=== PATIENT | male | born 1985 | race Caucasian/White ===

== ENCOUNTER 2017-06-11 21:57 | Emergency (ER) | payer MEDICARE, MEDICAID ==
[~2017-06-11] VITALS: Ht 185.4 cm; Wt 134.1 kg
[~2017-06-11 21:57] MED LIST: DEP250 PO; DEP500A PO; ENOX150D SUBQ; RISP1TAB90 PO; SERT50TA9 PO
[2017-06-11 22:12] VITALS: BP 124/83; PULSE 80; RESP 20; O2SAT 96
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
[2017-06-11] MEDS ORDERED: oxyCODONE-Acetamin 5-325 mg Tablet PO ONE (22:35)
[2017-06-12] MEDS ORDERED: Dabigatran 150 mg Capsule PO ONE (00:20)
[2017-06-12 00:58] LABS: BASOPHILS % (AUTO) 0.3 % (0-3); EOSINOPHILS % (AUTO) 4.9 % (0-5); MONOCYTES % (AUTO) 9.2 % (4-12); Mean Corpuscular Hemoglobin 29.7 pg (27.0-35.0); Mean Corpuscular Volume 86.4 fL (81-100); NEUTROPHILS % (AUTO) 52.5 % (40-74); Platelet Count 295 bil/L (150-400)
[2017-06-12] MEDS ORDERED: CALC500T9 PO (01:00)
[2017-06-12] MEDS ORDERED: MELA5TAB14 PO (01:00)
[2017-06-12] MEDS ORDERED: OMEP20CA11 PO (01:00)
[2017-06-12] MEDS ORDERED: CLON0.5T PO (01:00)
[2017-06-12] MEDS ORDERED: NICO2LOZ BC (01:00)
[2017-06-12] MEDS ORDERED: CLON1TAB PO (01:00)
[2017-06-12] MEDS ORDERED: DIPH25CA6 PO (01:00)
[2017-06-12] MEDS ORDERED: OXYC5CAP4 PO (01:00)
[2017-06-12] MEDS ORDERED: RISP1TAB90 PO (01:00)
[2017-06-12] MEDS ORDERED: MAGN400O4 PO (01:00)
[2017-06-12] MEDS ORDERED: SIME120L MC (01:00)
[2017-06-12] MEDS ORDERED: LITH600C PO ×2 (01:00)
[2017-06-12] MEDS ORDERED: PRAZ2CAP2 PO (01:00)
[2017-06-12] MEDS ORDERED: GABA-502 PO (01:00)
[2017-06-12] MEDS ORDERED: ACET325T51 PO (01:00)
[2017-06-12] MEDS ORDERED: BUSP15TA3 PO (01:00)
[2017-06-12] MEDS ORDERED: TRAM50TA2 PO (01:00)
[2017-06-12] MEDS ORDERED: DABI150C PO (01:35)
[2017-06-12 02:55] VITALS: BP 127/81; PULSE 80; RESP 18; O2SAT 96
--- NOTE | 2017-06-12 09:22 | DRSVH ---
PROCEDURE: US VEINOUS LEG DUPLEX UNILATERAL, LEFT INDICATIONS: L leg swelling, prior DVT TECHNIQUE: Real-time imaging, as well as color and pulse Doppler interrogation, were performed of the lower extr emity deep veins from the inguinal ligament to the popliteal fossa. COMPARISON: None. FINDINGS: The deep veins are normally compressible, and free of intraluminal thrombus. Color and pu lse Doppler demonstrate normal phasic intraluminal flow. There is normal augmentation response to di stal compression maneuver. There is incomplete compressibility of the proximal superficial femoral v ein with wall thickening. IMPRESSION: Findings suggesting chronic DVT involving the proximal superficial femoral vein. Otherwis e no acute deep venous thrombosis identified within the left lower extremity. Note: These findings are concordant with the preliminary interpretation. Dictated by: Flo SALOMON Interpreted: Victorina De La Vega MD on 06/12/2017 at 8:49 Approved by: Victorina De La Vega M.D. on 06/12/2017 at 9:19
== END 2017-06-12 02:56 | disposition other institution (70) ==
LOC: EDBD 21:57 → SED 21:57
DX: I82.411 Acute embolism and thrombosis of right femoral vein (principal); F31.9 Bipolar disorder, unspecified; F41.9 Anxiety disorder, unspecified; F32.9 Major depressive disorder, single episode, unspecified; F17.200 Nicotine dependence, unspecified, uncomplicated; Z88.0 Allergy status to penicillin; Z86.711 Personal history of pulmonary embolism; Z86.14 Personal history of Methicillin resistant Staphylococcus aureus infection

== ENCOUNTER 2017-06-17 12:08 | Emergency (ER) | payer MEDICARE, MEDICAID ==
[~2017-06-17] VITALS: Ht 185.4 cm; Wt 145.4 kg
[~2017-06-17 12:08] MED LIST changes: +ACET325T51 PO; +BUSP15TA3 PO; +CALC500T9 PO; +CLON0.5T PO; +CLON1TAB PO; +DABI150C PO; -DEP250 PO; -DEP500A PO; +DIPH25CA6 PO; -ENOX150D SUBQ; +GABA-502 PO; +LITH600C PO; +MAGN400O4 PO; +MELA5TAB14 PO; +NICO2LOZ BC; +OMEP20CA11 PO; +OXYC5CAP4 PO; +PRAZ2CAP2 PO; -SERT50TA9 PO; +SIME120L MC; +TRAM50TA2 PO
[2017-06-17 12:19] VITALS: BP 146/64; PULSE 63; RESP 18; O2SAT 98
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
[2017-06-17 15:14] VITALS: BP 143/85; PULSE 82; RESP 16; O2SAT 97
--- NOTE | 2017-06-17 16:24 | DRSVH ---
PROCEDURE: US VEINOUS LEG DUPLEX UNILATERAL, LEFT INDICATIONS: worsening leg swelling, known DVT TECHNIQUE: Real-time imaging, as well as color and pulse Doppler interrogation, were performed of the lower extr emity deep veins from the inguinal ligament to the popliteal fossa. COMPARISON: None. FINDINGS: The deep veins are normally compressible, and free of intraluminal thrombus. Color and pu lse Doppler demonstrate normal phasic intraluminal flow. There is normal augmentation response to di stal compression maneuver. IMPRESSION: No DVT found. Dictated by: Odell Ernandez M.D. on 06/17/2017 at 16:22 Approved by: Odell Ernandez M.D. on 06/17/2017 at 16:22
== END 2017-06-17 15:19 | disposition home or self-care (01) ==
LOC: SED 12:08
DX: L03.116 Cellulitis of left lower limb (principal); R03.0 Elevated blood-pressure reading, without diagnosis of hypertension; F17.200 Nicotine dependence, unspecified, uncomplicated; Z86.711 Personal history of pulmonary embolism; Z86.14 Personal history of Methicillin resistant Staphylococcus aureus infection; Z88.0 Allergy status to penicillin
CPT/HCPCS: 93970; 96372; 99284; J1885

== ENCOUNTER 2017-06-20 12:05 | Emergency (ER) | payer MEDICARE, MEDICAID ==
[~2017-06-20] VITALS: Ht 188 cm; Wt 159.1 kg
[2017-06-20 12:21] VITALS: BP 145/79; PULSE 101; RESP 18; O2SAT 98
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
[2017-06-20 12:53] LABS: BASOPHILS % (AUTO) 0.3 % (0-3); EOSINOPHILS % (AUTO) 5.1 % (0-5); MONOCYTES % (AUTO) 10.4 % (4-12); Mean Corpuscular Hemoglobin 29.3 pg (27.0-35.0); Mean Corpuscular Volume 87.5 fL (81-100); NEUTROPHILS % (AUTO) 50.1 % (40-74); Platelet Count 315 bil/L (150-400)
--- NOTE | 2017-06-20 16:45 | DRSVH ---
PROCEDURE: MRA ANGIOGRAM ABDOMEN ([id number]) INDICATIONS: concern for deep vein thrombosis, left leg swellin TECHNIQUE: Precontrast axial, coronal, and sagittal TruFISP acquired through the abdomen and pelvis. Dynamic co patel MRA using Care Bolus timing of the abdomen and pelvis during the administration of contrast, wi th 3-dimensional maximum intensity projection (MIP) reformats performed. COMPARISON: None. FINDINGS: Image quality: Please note, the study is limited by large patient body habitus and patient motion art ifact. Mesenteric arteries: There is a focal moderate to high grade stenosis at the origin of the celiac axi s. The SMA is patent. The TATUM is patent. Aorta: Aorta is normal in caliber and enhancement. IVC: The IVC is patent. The visualized portions of the common iliac veins are patent. Renal arteries: The 2 right and the 2 left renal arteries are patent. Extravascular soft tissues: Visualized solid organs are normal in size on limited pre-contrast image s. Bowel loops are normal in caliber. No free fluid. No retroperitoneal or mesenteric adenopathy b y size criteria. No ventral hernias. Bones: Marrow is normal in overall signal. IMPRESSION: 1. Limited study given the motion and patient body habitus; however there is no evidence for thrombus within the IVC or the common iliac veins. 2. 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 Otherwise unremarkable mesenteric arteri ogram. 3. Normal appearance of the aorta and iliac arteries. Dictated by: Victorina De La Vega M.D. on 06/20/2017 at 16:37 Approved by: Victorina De La Vega M.D. on 06/20/2017 at 16:44
--- NOTE | 2017-06-20 16:55 | DRSVH ---
PROCEDURE: US VENOUS ARM DUPLEX UNILATERAL, LEFT INDICATIONS: left arm swelling h/o DVT TECHNIQUE: Real-time imaging, as well as color and pulse Doppler interrogation, was performed of the left upper extremity deep veins from the inferior neck to the antecubital fossa. COMPARISON: None. FINDINGS: The internal jugular vein, visualized portions of the subclavian vein, axillary, and brach ial veins are free of intraluminal thrombus. Where physically possible, the veins are normally compr essible. Color and pulse Doppler demonstrate normal intraluminal flow, with expected phasicity and p ulsatility. Additional scanning of the cephalic and basilic veins of the superficial system demonstr ate normal compressibility, without thrombus. IMPRESSION: No left upper extremities venous thrombus identified. Dictated by: Flo SALOMON Interpreted: Kareem Rueda MD on 06/20/2017 at 15:29 Approved by: Kareem Rueda M.D. on 06/20/2017 at 16:54
[2017-06-20 17:33] VITALS: BP 132/63; PULSE 86; RESP 17; O2SAT 97
== END 2017-06-20 17:34 | disposition other institution (70) ==
LOC: EDBD 12:05 → SED 12:05
DX: M79.89 Other specified soft tissue disorders (principal); F17.200 Nicotine dependence, unspecified, uncomplicated; Z86.711 Personal history of pulmonary embolism; Z88.0 Allergy status to penicillin
CPT/HCPCS: 36415; 80048; 85025; 93971; 99285; A9585; C8900

== ENCOUNTER 2017-06-24 16:57 | Emergency (ER) | payer MEDICARE, MEDICAID ==
[~2017-06-24] VITALS: Ht 185.4 cm; Wt 152.3 kg
[2017-06-24 17:21] VITALS: BP 122/73; PULSE 103; RESP 19; O2SAT 95
[2017-06-24 17:22] VITALS: BP 122/73; PULSE 103; RESP 19; O2SAT 95
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
[2017-06-24] MEDS ORDERED: OXYC-466 PO (18:10)
[2017-06-24] MEDS ORDERED: DOCU-41 PO (18:10)
[2017-06-24] MEDS ORDERED: DEP500ER PO (18:10)
[2017-06-24] MEDS ORDERED: MELA3TAB54 PO (18:10)
[2017-06-24] MEDS ORDERED: POTA20TA16 PO (18:10)
[2017-06-24] MEDS ORDERED: ONDA4TAB6 PO (18:10)
[2017-06-24] MEDS ORDERED: RISP1TAB90 PO (18:10)
[2017-06-24] MEDS ORDERED: FURO-129 PO (18:10)
[2017-06-24 18:47] LABS: BASOPHILS % (AUTO) 0.4 % (0-3); EOSINOPHILS % (AUTO) 5.9 % (0-5); MONOCYTES % (AUTO) 11.1 % (4-12); Mean Corpuscular Hemoglobin 29.4 pg (27.0-35.0); Mean Corpuscular Volume 87.8 fL (81-100); NEUTROPHILS % (AUTO) 47.8 % (40-74); Platelet Count 335 bil/L (150-400)
[2017-06-24 19:52] VITALS: BP 134/75; PULSE 105; O2SAT 97
--- NOTE | 2017-06-24 20:07 | DRSVH ---
PROCEDURE: US VEINOUS LEG DUPLEX UNILATERAL, LEFT INDICATIONS: increased swelling hx DVT TECHNIQUE: Real-time imaging, as well as color and pulse Doppler interrogation, were performed of the lower extr emity deep veins from the inguinal ligament to the popliteal fossa. COMPARISON: [facility], US, US VENOUS LEG DPLX UNI LT, 06/17/2017, 13:44. [facility], US, US VENOUS LEG DPLX UNI LT, 06/11/2017, 23:25. FINDINGS: The deep veins are normally compressible, and free of intraluminal thrombus. Color and pu lse Doppler demonstrate normal phasic intraluminal flow. There is normal augmentation response to di stal compression maneuver. IMPRESSION: No sonographic evidence of left lower extremity deep venous thrombus. Dictated by: Jean Swartz M.D. on 06/24/2017 at 20:05 Approved by: Jean Swartz M.D. on 06/24/2017 at 20:05
[2017-06-24] MEDS ORDERED: oxyCODONE-Acetamin 5-325 mg Tablet PO PRN (20:45)
[2017-06-24] MEDS ORDERED: LORazepam 1 mg Tablet PO ONE (20:45)
[2017-06-24 22:11] VITALS: BP 117/75; PULSE 100; O2SAT 96
== END 2017-06-24 23:11 | disposition other institution (70) ==
LOC: EDUNIT# 16:57 → EDBD 16:57 → SED 16:57
DX: I89.0 Lymphedema, not elsewhere classified (principal); R11.2 Nausea with vomiting, unspecified; R06.02 Shortness of breath; F41.8 Other specified anxiety disorders; F31.9 Bipolar disorder, unspecified; F17.200 Nicotine dependence, unspecified, uncomplicated; Z79.01 Long term (current) use of anticoagulants; Z87.828 Personal history of other (healed) physical injury and trauma; Z86.14 Personal history of Methicillin resistant Staphylococcus aureus infection; Z98.890 Other specified postprocedural states; Z88.0 Allergy status to penicillin

== ENCOUNTER 2017-07-03 12:48 | Emergency (ER) | payer MEDICARE, MEDICAID ==
[~2017-07-03] VITALS: Ht 185.4 cm; Wt 145.4 kg
[~2017-07-03 12:48] MED LIST changes: -CLON0.5T PO; +DEP500ER PO; +DOCU-41 PO; +FURO-129 PO; +MELA3TAB54 PO; -MELA5TAB14 PO; +ONDA4TAB6 PO; +OXYC-466 PO; -OXYC5CAP4 PO; +POTA20TA16 PO; -PRAZ2CAP2 PO; -SIME120L MC; -TRAM50TA2 PO
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
[2017-07-03 13:21] VITALS: BP 127/79; PULSE 95; RESP 18; O2SAT 97
[2017-07-03 13:47] LABS: BASOPHILS % (AUTO) 0.6 % (0-3); EOSINOPHILS % (AUTO) 4.3 % (0-5); MONOCYTES % (AUTO) 14.7 % (4-12); Mean Corpuscular Hemoglobin 29.8 pg (27.0-35.0); Mean Corpuscular Volume 86.8 fL (81-100); Platelet Count 353 bil/L (150-400)
--- NOTE | 2017-07-03 13:57 | DRSVH ---
PROCEDURE: X-RAY CHEST ONE VIEW, PORTABLE ([id number]) INDICATIONS: weakness, BLE edema TECHNIQUE: One view of the chest was acquired. COMPARISON: None. FINDINGS: Surgical changes and devices: None. Lungs and pleura: There is diffuse interstitial prominence throughout both lungs. No pleural effusion or pneumothorax. Mediastinum: Mediastinal contours appear normal. Heart size is normal. Bones and chest wall: No suspicious bony lesions. Overlying soft tissues appear unremarkable. IMPRESSION: Diffuse interstitial prominence suggesting fluid overload. Dictated by: Victorina De La Vega M.D. on 07/03/2017 at 13:55 Approved by: Victorina De La Vega M.D. on 07/03/2017 at 13:56
[2017-07-03 14:17] LABS: APPEARANCE,URINE HAZY (CLEAR,HAZY); COLOR,URINE STRAW (YELLOW); OCCULT BLOOD,URINE NEGATIVE (NEGATIVE); UROBILINOGEN,URINE NORMAL (NORMAL)
[2017-07-03] MEDS ORDERED: oxyCODONE-Acetamin 5-325 mg Tablet PO ONE (14:40)
[2017-07-03 15:59] VITALS: BP 122/74; PULSE 92; RESP 16; O2SAT 97
[2017-07-03 16:11] VITALS: BP 122/64; PULSE 94; RESP 14; O2SAT 98
== END 2017-07-03 16:13 | disposition home or self-care (01) ==
LOC: SED 12:48 → EDBD 12:48 → SED 16:13
DX: R60.0 Localized edema (principal); Z86.711 Personal history of pulmonary embolism; F17.200 Nicotine dependence, unspecified, uncomplicated; Z86.718 Personal history of other venous thrombosis and embolism; Z88.0 Allergy status to penicillin; Z91.018 Allergy to other foods